=== PATIENT | male | born 1960 | race Caucasian/White ===

== ENCOUNTER 2016-12-28 15:47 | Observation (INO) | payer OTHER ==
--- NOTE | ~2016-12-28 | CN ---
Consultation Report [place] [address] [facility] [place]. 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 He had three episodes of similar problems over the last three years or so. He has a history of hypertension, but he is not known to be diabetic. EKG shows sinus bradycardia with PVCs. FAMILY HISTORY: Positive for hypertension. PREVIOUS SURGERIES: Include a left extra digit on his hand removal as a child. He has also had hernia repair and 28 teeth removed in March of last year. ALLERGIES: HE IS ALLERGIC TO MELOXICAM. SOCIAL HISTORY: This gentleman is . Has four children, one of which had congenital heart disease-pulmonary stenosis. MEDICATIONS: At home have included Valium, Advil, and penicillin that he takes for sinus problems. He unfortunately has not been able to stop smoking. He has no known thyroid disease. He has never undergone a cardiac workup in the past. REVIEW OF SYSTEMS: Otherwise all negative without chest pain or significant shortness of breath. He has no hemoptysis, chills, or fever. PHYSICAL EXAMINATION: VITAL SIGNS: Blood pressure is 130/70. HEENT: Head is normocephalic. Eyes: PERRLA. Nose had no epistaxis. Mouth was edentulous. NECK: Supple. CHEST: Clear. I hear no wheezes, rales, or rhonchi. HEART: Regular rhythm, although a rate of 50 per minute tonight. There is no S3 gallop. I hear no murmur or pericardial rub. ABDOMEN: Benign. Nontender. EXTREMITIES: Had no clubbing, edema, or cyanosis. NEUROLOGIC: Exam intact. He is oriented to time, place, and person. CLINICAL IMPRESSION: 1. Near syncope-recurrent. Consultation Report [place] [address] [facility] [place]. [address] NAME: JAYRO BURNETT : 62 STATUS : ADM IN PAT#: [id number] AGE: 56 ADM/REG DATE : 12/28/16 MR#: [id number] REPORT SERV DATE: 12/29/16 DICTATED BY: MICHELLE CHAMBERLAIN DATE: 12/28/16 REPORT STATUS : Draft TRANSCRIBED BY: ALIN DATE: 12/28/16 2. Sinus bradycardia-suspect sick sinus syndrome. 3. PVCs. 4. Smoker. 5. History of hypertension. RECOMMENDATIONS: 1. Echocardiogram. 2. We will check a TSH, T3, and T4. 3. He might need evaluation for possible pacemaker placement if no cause of secondary sinus bradycardia is found. RB/ALIN Michelle Chamberlain M.D. / [id number] CC: Joy Sheridan MD UNKNOWN
--- NOTE | ~2016-12-28 | HP ---
History And Physical [place] [address] [facility] [place]. [address] NAME: JAYRO BURNETT : 62 STATUS : ADM IN PAT#: [id number] AGE: 56 ADM/REG DATE : 12/28/16 MR#: [id number] REPORT SERV DATE: 12/29/16 DICTATED BY: JOY HICKMAN DATE: 12/28/16 REPORT STATUS : Draft TRANSCRIBED BY: ALIN DATE: 12/28/16 DATE OF ADMISSION: 12/28/2016 CHIEF COMPLAINT: Blackout spells. HISTORY OF PRESENT ILLNESS: This is a 56-year-old male with medical history of vertigo, sinusitis, tobacco abuse, left inguinal hernia, who presented to the [facility] with complaints of blacking out. The patient endorsed histories of blackout spells. First episode happened about two years ago while he was sitting down with his family without any preceding activities. He became lightheaded and felt like blacking out. The episode lasted just a few seconds and went away without any further intervention. He reported few months later he had another episode while he was trying to lift his home. He said he became exhausted and felt like blacking out. The episode lasted just for some few minutes and resolved without any intervention. The patient reported that today while he was driving down the road he had a blackout. He felt lightheaded and had a blackout spell. He decided to go to a nearby restaurant where he ordered for some fast food, had a meal at a restaurant, and returned back to the road and continued driving. However, he reported that the episode became even worse and became more intense and decided he had some associated difficulty breathing and started to drive down to the nearest hospital which was [facility]. He decided he reported no associated chest pain, palpitation, no syncopal episode. He denies any leg swelling, dyspnea on exertion, orthopnea, or PND. The patient reported that he has been very active all his life. 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 In [facility], an EKG was done that showed sinus bradycardia. It was noted that the patient's heart rate was in the 40s. A CT scan of the head was done that was negative for any intracranial pathology. The patient's blood pressure was stable. It was also reported that they obtain an orthostatic vitals that was also negative. The patient denies taking any medication. Blood pressure was noted to be in the 140s over 80s, and orthostatic vitals were negative. The patient was subsequently transferred to [facility] for further cardiac workup given presyncope and evidence of sinus bradycardia. PAST MEDICAL HISTORY: 1. Vertigo, takes Valium, last dose of Valium taken was two years ago. 2. Chronic sinusitis. 3. Left inguinal hernia. 4. Tobacco abuse. PAST SURGICAL HISTORY: Right herniorrhaphy. ALLERGIES: THE PATIENT REPORTS ALLERGIES TO MELOXICAM. FAMILY HISTORY: 1. Significant for family history of pulmonary valve stenosis in his daughter. History And Physical [address] [address] NAME: JAYRO BURNETT : 62 STATUS : ADM IN [facility]#: [id number] AGE: 56 ADM/REG DATE : 12/28/16 MR#: [id number] REPORT SERV DATE: 12/29/16 DICTATED BY: JOY HICKMAN DATE: 12/28/16 REPORT STATUS : Draft TRANSCRIBED BY: ALIN DATE: 12/28/16 2. Father of colon cancer. 3. Mother also of metastatic lung cancer. 4. Hypertension. 5. History of diabetes in his siblings. SOCIAL HISTORY: The patient smokes a pack of cigarettes a day. Drinks alcohol occasionally. Does not use any recreational drugs. Currently lives with his fiancee and has one daughter living with him. 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 MEDICATION: 1. Advil 200 mg tab p.o. daily p.r.n. 2. Penicillin VK 500 p.o. every six hours for chronic sinusitis. 3. Diazepam 0.5 mg p.o. b.i.d. p.r.n. for vertigo. PHYSICAL EXAMINATION: VITAL SIGNS: Blood pressure 148/75, heart rate 54 beats per minute, temperature 37.3, and saturating 96% on room air. GENERAL: Not in any acute distress. HEENT: Pupils are equal, round, and reactive. Extraocular muscles intact. Not pale. Anicteric. Oral mucosa moist. Edentulous. CHEST: Nontender. Equal expansion. LUNGS: Clear to auscultation bilaterally. ABDOMEN: Soft, nontender. LOWER EXTREMITIES: No pedal edema. NEUROLOGY: Alert and oriented x4. Cranial nerve 2 through 12 intact. Strength in all extremities 5/5. Reflexes normal. IMAGING: Chest x-ray pending. LABORATORY DATA: At [facility]: Hematology: WBC 5.3, hemoglobin 15.5, hematocrit 45.9, and platelets 163. Chemistry: Sodium 139, potassium 3.7, chloride 101, bicarb 25, calcium 9.9, glucose 131, BUN 12, creatinine 1.05, albumin 4.2, protein 6.7, alkaline phosphatase 95, ALT 13, AST 14, bilirubin is 0.6. Troponin less than 0.03. TSH 1.23. CT scan of the head, no acute intracranial pathology. Reports from [facility]. ASSESSMENT: 1. Presyncope. 2. Sinus bradycardia with premature ventricular contractions. 3. History of vertigo. 4. Tobacco abuse. 5. Left inguinal hernia. PLAN: 1. Presyncope. Definitive etiology unclear at this time. I doubt this patient's presyncope is related to the bradycardia as the patient reported that he has always had History And Physical [address] [address] NAME: JAYRO BURNETT : 62 STATUS : ADM IN [facility]#: [id number] AGE: 56 ADM/REG DATE : 12/28/16 MR#: [id number] REPORT SERV DATE: 12/29/16 DICTATED BY: JOY HICKMAN DATE: 12/28/16 REPORT STATUS : Draft TRANSCRIBED BY: ALIN DATE: 12/28/16 a slow heart rate all his life; however, we will obtain an echocardiogram to rule out valvular heart disease. I will place the patient on cardiac tele monitor to rule out any cardiac arrhythmias. We will get a cardiology input given family history of cardiac disease. 2. Sinus bradycardia with PVCs. At this point, the patient is asymptomatic during my evaluation. Blood pressure is stable. We will proceed as dictated in problem #1. 3. Tobacco abuse. Counseled on tobacco cessation. The patient declined nicotine patch. 4. History of left inguinal hernia. The patient is reportedly scheduled to have a hernia repair on 12/30/2016. At this point, no evidence of strangulation on physical examination. 5. History of vertigo. At this time, the patient has no vertigo symptoms. We will continue to monitor. 6. Admission for status observation. DVT prophylaxis. Heparin. 7. Code status. Full code. IOO/MODL Joy Hickman MD / [id number] CC: Joy Hickman MD
--- NOTE | ~2016-12-28 | DS ---
Discharge Summary [facility] [address] [place]. [address] NAME: JAYRO BURNETT : 62 STATUS : DIS [place] PAT#: [id number] AGE: 56 ADM/REG DATE : 12/28/16 MR#: [id number] REPORT SERV DATE: 12/30/16 DICTATED BY: JOY HICKMAN DATE: 12/29/16 REPORT STATUS : Draft TRANSCRIBED BY: MODLuan DATE: 12/29/16 ADMISSION DATE: 12/28/2016 DISCHARGE DATE: 12/29/2016 CONSULTATION: Cardiology, Dr. Carlos Chamberlain. DISCHARGE DIAGNOSES: 1. Presyncope. 2. Sinus bradycardia with premature ventricular contractions. 3. Sick sinus syndrome. 4. Tobacco abuse. 5. History of vertigo. INVASIVE PROCEDURE: Procedure during the course of this admission, none. IMAGING DONE: Echocardiogram, summary, low normal left ventricular systolic function with an estimated ejection fraction of 50% to 55%. Normal right ventricular chamber size and systolic function. No significant valvular regurgitation or stenosis. HISTORY OF PRESENT ILLNESS: For detailed HPI, please make reference to Dr. Joy Hickman's dictation on 12/28/2016. In brief, this is a 56-year-old male with medical history of vertigo who presented to the hospital with complaints of blackout spells while driving. The patient was evaluated at [facility] and was found to have a sinus bradycardia of heart rate in the 40s. Blood pressure was 140/90. The patient was transferred to [facility] here at [facility] for further evaluation. HOSPITAL COURSE: Presyncope. EKG at the Center showed sinus bradycardia with PVCs with a heart rate of 52. Cardiology was consulted, evaluated the patient, noted that the patient may be having a possible sick sinus syndrome. EP evaluated the patient and recommended a dual-chamber pacemaker. However, the patient declined pacemaker during the course of this admission. Despite extensive counseling on the risks and benefits of having a pacemaker, the patient decided that he would like to be discharged and follow up with his primary care physician for further evaluation. The patient was discharged in stable condition. No new medications were prescribed to the patient at the time of discharge. The patient was counseled extensively on tobacco cessation. Nicotine patch was provided to the patient, but declined. DISCHARGE DISPOSITION: Home. DISCHARGE FOLLOWUP: Follow up with primary care physician as an outpatient. DISCHARGE ACTIVITY: The patient was advised to abstain from driving due to history of presyncopal episodes. Discharge Summary [address] [address] NAME: JAYRO BURNETT : 62 STATUS : DIS [place] PAT#: [id number] AGE: 56 ADM/REG DATE : 12/28/16 MR#: [id number] REPORT SERV DATE: 12/30/16 DICTATED BY: JOY HICKMAN DATE: 12/29/16 REPORT STATUS : Draft TRANSCRIBED BY: ALIN DATE: 12/29/16 Please note that greater than 30 minutes was used to prepare this patient's discharge, reconcile medication, advise the patient on discharge plans and followup. DICTATED BY: MD TIMOTHY Baez/ALIN Joy Hickman MD / [id number] CC: MD Steve Baez M.D.
[2016-12-28] MEDS ORDERED: V2 PO (16:03)
[2016-12-28] MEDS ORDERED: PENICILLN VK500 MG PO (16:15)
[2016-12-28] MEDS ORDERED: ADVIL PO (16:16)
[2016-12-28 21:24] LABS: A/G RATIO 1.3 (0.7-1.9); ALBUMIN 3.8 G/DL (3.5-5.0); ALKALINE PHOSPHATASE 101 U/L (45-117); BUN (BLOOD UREA NITROGEN) 12 MG/DL (6-23); CALCIUM, SERUM 8.8 MG/DL (8.5-10.4); CHLORIDE, SERUM 110 MMOL/L (96-112); CO2 (CARBON DIOXIDE) 33 MMOL/L (24-34); CREATININE 1.16 MG/DL (0.70-1.30); FREE T4 0.93 NG/DL (0.76-1.46); GFR AFRICAN AMERICAN 82 ML/MIN (>=60); GFR NON AFRICAN AMERICAN 71 ML/MIN (>=60); GLUCOSE, SERUM 99 MG/DL (60-99); PHOSPHORUS, SERUM 2.6 MG/DL (2.5-4.5); POTASSIUM, SERUM 3.5 MMOL/L (3.5-5.3); SGOT(AST) 15 U/L (5-40); SGPT(ALT) 19 U/L (5-65); SODIUM, SERUM 146 MMOL/L (135-148); TOTAL BILIRUBIN 0.7 MG/DL (0-1.2); TOTAL PROTEIN 6.8 G/DL (6.0-8.5); TROPONIN I <0.02 NG/ML (<0.05)
[2016-12-29 05:54] LABS: BASOPHILS 0.4 %; BASOPHILS ABSOLUTE 0.03 10/3/uL (0.0-0.16); EOSINOPHILS 4.1 %; EOSINOPHILS ABSOLUTE 0.29 10/3/uL (0.0-0.53); HEMATOCRIT 42.7 % (40.0-51.0); LYMPHOCYTES 38.1 %; LYMPHOCYTES ABSOLUTE 2.72 10/3/uL (0.67-4.30); MEAN CORPUS HGB CONC 35.1 g/dL (32.0-36.0); MEAN CORPUSCULAR HEMOGLOB 33.5 pg (26.0-34.0); MEAN CORPUSCULAR VOLUME 95.3 fL (80-100); MEAN PLATELET VOLUME 9.9 fL (9.2-13.0); MONOCYTES ABSOLUTE 0.64 10/3/uL (0.21-1.20); NEUTROPHILS 48.4 %; NEUTROPHILS ABSOLUTE 3.45 10/3/uL (2.02-8.40); PLATELET COUNT 192 10/3/uL (150-400); RBC DISTRIBUTION WIDTH 12.6 % (12.0-16.0); RED CELL COUNT 4.48 10/6/uL (4.7-6.1); WHITE BLOOD CELLS 7.1 10/3/uL (4.5-10.5)
[2016-12-29 05:55] LABS: MANUAL DIFF NO %
[2016-12-29 06:08] LABS: BUN (BLOOD UREA NITROGEN) 12 MG/DL (6-23); CALCIUM, SERUM 8.5 MG/DL (8.5-10.4); CHLORIDE, SERUM 109 MMOL/L (96-112); GFR AFRICAN AMERICAN 87 ML/MIN (>=60); GFR NON AFRICAN AMERICAN 75 ML/MIN (>=60); GLUCOSE, SERUM 97 MG/DL (60-99); PHOSPHORUS, SERUM 3.2 MG/DL (2.5-4.5); POTASSIUM, SERUM 3.9 MMOL/L (3.5-5.3); SODIUM, SERUM 143 MMOL/L (135-148)
[2016-12-29 06:09] LABS: CO2 (CARBON DIOXIDE) 28 MMOL/L (24-34)
[2016-12-29 07:19] LABS: AMPHETAMINES (NOT ORD) NEG (NEG); BARBITURATES (NOT ORDERED NEG (NEG); BENZODIAZEPINES (NOT ORD) NEG (NEG); CANNABINOIDS (THC) NEG (NEG); COCAINE (NOT ORDERED) NEG (NEG); OPIATES NEG (NEG); PHENCYCLIDINE(PCP) NEG (NEG); TRICYCLICS NEG (NEG)
[2016-12-29 07:46] LABS: GLYCOHEMOGLOBIN (HbA1c) 5.6 % (4.7-6.1)
== END 2016-12-29 14:00 | disposition home or self-care (01) ==
LOC: 6NO 15:47
PROVIDERS: Hospitalist
DX: R55 Syncope and collapse (principal); R00.1 Bradycardia, unspecified; I49.3 Ventricular premature depolarization; I49.5 Sick sinus syndrome; I10 Essential (primary) hypertension; F17.210 Nicotine dependence, cigarettes, uncomplicated; Z98.890 Other specified postprocedural states; Z79.899 Other long term (current) drug therapy
CPT/HCPCS: 71020; 80048; 80053; 80305; 83036; 83735; 83880; 84100; 84439; 84443; 84481; 84484; 85025; 86592; 93005; A9270-GY; C8929; G0378; Q9957